=== PATIENT | male | born 1975 | race Caucasian/White ===

== ENCOUNTER → 2020-05-08 03:54 | Outpatient (CLI) | payer OTHER, SELFPAY ==
[2020-05-09 18:18] LABS: SARS-CoV-2 RNA PCR Negative
== END ==
PROVIDERS: PCP Family Medicine; Visit Provider Otolaryngology
DX: Z01.812 Encounter for preprocedural laboratory examination (principal); Z20.822 Contact with and (suspected) exposure to COVID-19
CPT/HCPCS: C9803; U0003; U0005

== ENCOUNTER 2020-05-11 00:59 | Day surgery (SDC) | payer OTHER, SELFPAY ==
[2020-05-07 14:48] VITALS: BMI 25.2
--- NOTE | 2020-05-10 12:11 | PM.IMHP ---
H&P: HPI History of Present Illness Date/Time: 05/10/20 12:11 Chief Complaint: Nasal obstruction, septal deviation, inferior turbinate hypertrophy Narrative: David Hogan Jr. is a 44 year old male Who presents for planned surgical procedure. The patient reports no new symptoms or changes in his medical history. Review of Systems Constitutional: Constitutional: Denies fatigue, Denies fever(s) and Denies lethargy Eyes: Eyes: Denies blurry vision and Denies change in vision ENT: Reports as per HPI Cardiovascular: Cardiovascular: Denies chest pain Respiratory: Respiratory: Denies cough Endocrine: Endocrine: Denies fatigue Hematologic/Lymphatic: Hematologic/Lymphatic: Denies easy bleeding, Denies easy bruising and Denies lymphadenopathy [facility] Past Medical History Medical History (Updated 04/16/20 @ 13:41 by Victoriano Henson MD) Bilateral shoulder bursitis BMI 24.0-24.9, adult Family History Family History Grandparent Cerebrovascular accident Social History Social History (Updated 05/09/20 @ 14:08 by Lotus Pineda) Smoking status: Never smoker Second hand tobacco smoke exposure: No Alcohol intake: current Drinks per week: 10 Substance use: never Substance use type: does not use Living arrangements: with family Occupation/Education: occupation 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 Gender identity (if verbalized by the patient): Male Sexual Orientation (if Verbalized by the Patient): Straight or Heterosexual Meds Home Medications and Allergies Home Medications Medication Instructions Recorded Confirmed Type No Home Medications 05/07/20 05/07/20 History Allergies Allergy/AdvReac Type Severity Reaction Status Date / Time No Known Allergies Allergy Verified 05/09/20 14:07 Exam Const: General: cooperative, healthy appearing, comfortable, well developed and alert HENMT: Head: normal to inspection, normocephalic and atraumatic Ears: hearing grossly normal bilaterally, external ears normal, TM's normal bilaterally and EAC's normal General nose exam: Normal external nose present, Normal nares present, No nasal polyps present, mucous membranes and turbinates abnormal (inferior turbinate hypertrophy) and abnormal septum (septal deviation) Face and sinus: normal facial exam Mouth: Yes Normal oral and palatal mucosa present, Yes lip normal, Yes tongue normal, Yes oropharynx normal and Yes moist mucous membranes Teeth and gingiva: dentition normal and gingiva normal Throat: posterior oropharynx normal, tonsils normal and uvula midline Eyes: General: appearance normal, both eyes and all related structures Periorbital: periorbital findings normal Eyelids: eyelids normal Conjunctivae: conjunctivae normal Sclera: sclerae normal Neck: Neck: normal visual inspection, full ROM and no lymphadenopathy Thyroid: thyroid normal Lymphatic: no lymphadenopathy noted Resp: Effort & Inspection: normal respiratory effort and able to speak in complete sentences Cardio: Jugular venous distension: no JVD Neuro: Cranial nerves: Yes CN's II-XII intact bilaterally Assessment and Plan Assessment and plan (1) Hypertrophy of both inferior nasal turbinates: Code(s): J34.3 - Hypertrophy of nasal turbinates Status: Acute Assessment and Plan: Plan is for the operating room for endoscopic assisted septoplasty and inferior turbinate reduction. The risks were discussed in great detail including bleeding infection damage to surrounding structures septal perforation inferior turbinate regrowth change in vision and . The patient voiced understanding of these risks and agreed. (2) Nasal septal deviation: Code(s): J34.2 - Deviated nasal septum Status: Acute (3) Nasal obstruction: Code(s): J34.89 - Other specified disorders of nose and nasal sinuses Status
--- NOTE | 2020-05-10 15:40 | P.PNAN_ITS ---
Anes - Initial Pre Proc Eval Procedure: Operation Date: 05/11/20 14:00 Proposed Procedures p Septoplasty - Victoriano Henson MD s Bilateral Inferior Turbinectomy - Victoriano Henson MD Date/Time: 05/10/20 15:40 Surgeon: Victoriano Henson MD Pre Op Diagnosis: Nasal Septal Deviation,Turbinate Hypertrophy Patient Data Age: 44 Gender: M Height: 1.7 m Weight: 73 kg Allergies Allergy/AdvReac Type Severity Reaction Status Date / Time No Known Allergies Allergy Verified 05/11/20 12:11 Home Medications Medication Instructions Recorded Confirmed Type No Home Medications 05/07/20 05/11/20 History Patient hx anesthesia problems: none Family hx anesthesia problems: none [facility] Past Medical History Medical History (Updated 04/16/20 @ 13:41 by Victoriano Henson MD) Bilateral shoulder bursitis BMI 24.0-24.9, adult Family History Family History Grandparent Cerebrovascular accident Social History Social History (Updated 05/09/20 @ 14:08 by Lotus Pineda) Smoking status: Never smoker Second hand tobacco smoke exposure: No Alcohol intake: current Drinks per week: 10 Substance use: never Substance use type: does not use Living arrangements: with family 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 Gender identity (if verbalized by the patient): Male Anes - Eval Final PreProcedure Day of Procedure 05/10/20 15:40 Patient weight: normal Heart: regular rate and rhythm Lungs: clear to auscultation and normal air movement Airway: Mallampati scale class II Neurological: alert and oriented Last oral intake: >/= 8 hours ASA classification: II Emergent: no Anesthetic plan: proceed Anesthesia type and monitoring: general ETT Informed Consent: The patient's anesthetic plan and its attendant risks and benefits were discussed with the patient/family/POA. Questions were solicited and answers provided to the satisfaction of the patient/family/POA.
[2020-05-11] VITALS (9 sets, daily range): BP systolic 117–150; BP diastolic 86–100; PULSE 71–104; RESP 12–16; TEMP 36.4–36.6; O2SAT 97–100
--- NOTE | 2020-05-11 06:57 | WPDHPUPDATE1 ---
History and Physical Update Update Date/Time: 05/11/20 06:57 History and Physical has been reviewed, including an updated exam of the patient. There are NO changes in the patient's condition. Risks, benefits, and alternatives have been discussed and questions answered. Patient agrees to proceed with procedure.
[2020-05-11] MEDS: ACETAMINOPHEN 500 MG TABLET 1000 MG PO (12:21)
[2020-05-11] MEDS: LACTATED RINGERS 1,000 ML 30 ML IV CONT ×2 (12:29→14:20)
[2020-05-11] MEDS: ceFAZolin 2 GM/D5W 50 ML 2 GM/50 ML BAG IVPB (12:47)
[2020-05-11] MEDS: OXYMETAZOLINE HCL 0.05% NAS 15 ML BTL (*BKC) 1 SPRAY NASAL (12:58)
[2020-05-11] MEDS: LIDO 1%/EPINEPHRINE 1:100,000 50 ML VIAL INFILTRATE (12:59)
--- NOTE | 2020-05-11 14:36 | P.OP_ITS ---
Procedure Note - Detailed Date of procedure: 05/11/20 Pre-op diagnosis: Nasal Septal Deviation,Turbinate Hypertrophy Post-op diagnosis: same Procedure performed: 1. Endoscopic septoplasty 2. Inferior turbinate reduction Description of procedure: The patient was correctly identified and consent was verified in the preoperative holding area. The patient was then brought to the operating room and a time-out was performed. General anesthesia was induced and endotracheal tube was secured the patient's airway and taped to the left lower lip. The patient was then prepped and draped for the aforementioned procedures. 10 cc of 1% lidocaine with 1 100,000 parts epinephrine was injected deep to the septal mucoperichondrium as well as the anterior portions of the inferior turbinates. Afrin-soaked pledgets were placed bilaterally and allowed to sit for 5 minutes. The Afrin-soaked pledgets were removed and hemitransection incision was created with 15 blade on the left side the left-sided mucoperichondrium was elevated with a combination of 7 Barbadian suction caudal elevator. The septum was then crossed over several mm X using 1 cm posteriorly and a right-sided mucoperichondrial flap was elevated deviated septal cartilage and bone was removed with a combination of osteotomes Jarett Ratliff forceps and Jess forceps. The inferior turbinates were then reduced in the submucosal plane using a microdebrider with inferior turbinate blade. They were outfractured with a [place]ville elevator mulberry tips were cauterized with suction Bovie electrocautery. The anterior keya transection incision was then closed with 4 interrupted 5 0 fast gut sutures. Camacho splints were placed bilaterally and sutured anteriorly with a mattressed 3 0 nylon suture. Blood loss was approximately 50 cc. I performed all portions of the procedure. Hemostasis was adequate. Care of the patient was turned over to Anesthesiology. Surgeon: Victoriano Henson MD Complications: No immediate complications Condition: stable Disposition: PACU
[2020-05-11] MEDS: fentaNYL CITRATE INJ (*CRX) 100 MCG/2 ML VIAL 25 MCG IV PUSH ×2 (14:55→14:59)
== END 2020-05-11 16:05 | disposition home or self-care (01) ==
PROVIDERS: PCP Family Medicine; Visit Provider Otolaryngology
PROC: (CPT 30520; principal; 2020-05-11 14:00)
PROC: (CPT 30140; 2020-05-11 14:00)
DX: J34.2 Deviated nasal septum (principal); J34.3 Hypertrophy of nasal turbinates
CPT/HCPCS: 30140; 30520; A9270; C9803; J0330; J0690; J1100; J1170; J2250; J2405; J2704; J3010; J7120; U0003; U0005

== ENCOUNTER → 2021-08-28 16:26 | Outpatient (CLI) | payer OTHER, SELFPAY ==
--- NOTE | ~2021-08-28 | XR_ITS ---
EXAMINATION: SACRUM/COCCYX DATE: 08/28/2021 16:52 INDICATION: Sacrococcygeal disorder TECHNIQUE: Three views sacrum/coccyx FINDINGS: No prior studies for comparison. There is no displaced fracture of the sacrum. The coccyx demonstrates overall normal morphology with out acute angulation. IMPRESSION: 1. No acute displaced osseous abnormality of the sacrum. Suspicion for occult or nondisplaced sacral fracture can either be evaluated with CT or MRI. 2. Grossly normal morphology to the coccyx without acute angulation. However, due to the wide range of normal variation of the coccyx, acute injury would be best evaluated by clinical examination and patient's symptoms. Reviewed, dictated and finalized at location A.
--- NOTE | ~2021-08-28 | XR_ITS ---
XR_[id number] 08/28/2021 16:52 Indication: Cervicalgia Procedure: 3 view cervical spine Comparison: No prior studies for comparison. Findings: Normal cervical lordosis. Mild disc narrowing at C6-7. Odontoid process is normal. No preve rtebral soft tissue swelling. No acute fracture or traumatic malalignment. There is mild uncinate hyp ertrophy at C6-7. Lung apices are normal. Impression: 1: Mild cervical spondylosis. Reviewed, dictated and finalized at location A. Impression: 1: Mild cervical spondylosis.
--- NOTE | ~2021-08-28 | XR_ITS ---
XR elbow RT 2V DATE: 08/28/2021 16:52 INDICATION: Right elbow pain TECHNIQUE: AP and lateral COMPARISON: None FINDINGS: No fracture or dislocation or joint effusion. No periosteal reaction or bone destruction. IMPRESSION: Negative Reviewed, dictated and finalized at location A. IMPRESSION: Negative
== END ==
PROVIDERS: PCP Family Medicine; Visit Provider Family Medicine
DX: M53.3 Sacrococcygeal disorders, not elsewhere classified (principal); M25.521 Pain in right elbow; M47.812 Spondylosis without myelopathy or radiculopathy, cervical region
CPT/HCPCS: 72040; 72220; 73070